=== PATIENT | male | born 1950 | race Caucasian/White ===

== ENCOUNTER 2023-08-02 08:54 | Inpatient (IN) | payer MEDICARE ==
[~2023-08-02] VITALS: Ht 170.2 cm; Wt 60.7 kg
[2023-08-02] MEDS ORDERED: SODIUM CHLORIDE 0.9% 2,100 ML IV ONE (09:45)
[2023-08-02] MEDS ORDERED: 0.9% SODIUM CHLORIDE 10 ML SYRINGE IVP PRN (09:45)
[2023-08-02] MEDS ORDERED: CefTRIAXone 1 GM/DEXTROSE 50 ML IV ONE (09:45)
[2023-08-02 10:21] LABS: BASOPHILS % (AUTO) 1.2 % (0.0-2.0); EOSINOPHILS % (AUTO) 4.3 % (1.0-6.0); HEMATOCRIT 33.5 % (41-53); HEMOGLOBIN 10.6 g/dL (13.5-17.5); LYMPHOCYTES # (AUTO) 1.2 K/uL (1.0-4.8); LYMPHOCYTES % (AUTO) 12.2 % (22.0-44.0); MEAN CORPUSCULAR HEMOGLOBIN 26.2 pg (26.0-34.0); MEAN CORPUSCULAR HGB CONC 31.7 G/dL (31.0-37.0); MEAN CORPUSCULAR VOLUME 83 fL (80-100); MONOCYTES % (AUTO) 9.7 % (2.0-9.0); NEUTROPHILS # (AUTO) 7.2 K/uL (1.8-7.7); NEUTROPHILS % (AUTO) 72.6 % (40.0-70.0); PLATELET COUNT (AUTO) 512 K/uL (150-450); RED BLOOD CELL COUNT(AUTO) 4.05 MIL/uL (4.50-5.90); RED CELL DISTRIBUTION WIDTH 18.3 % (11.5-14.5); WHITE BLOOD COUNT (AUTO) 9.9 K/uL (4.5-11.0)
[2023-08-02 10:34] LABS: PROTHROMBIN TIME 10.8 SEC (9.4-11.6)
[2023-08-02 10:36] LABS: ANION GAP 15 mmol/L (8-16); CALCIUM, TOTAL 8.9 mg/dL (8.8-10.5); CARBON DIOXIDE 19 mmol/L (22-29); CHLORIDE 104 mmol/L (98-107); CREATININE 2.21 mg/dL (0.60-1.30); GLOMERULAR FILTR. RATE CALC 29 mL/min (>60); GLUCOSE,RANDOM 95 mg/dL (70-110); POTASSIUM 4.4 mmol/L (3.5-5.1); SODIUM SERUM 138 mmol/L (136-145); UREA NITROGEN, BLOOD 40 mg/dL (7-18)
[2023-08-02 10:42] LABS: ALANINE AMINOTRANSFERASE 9 U/L (12-78); ALBUMIN 2.5 g/dL (3.4-5.0); ALKALINE PHOSPHATASE 99 U/L (46-116); ASPARTATE AMINOTRANSFERASE 14 U/L (15-37); BILIRUBIN,TOTAL 0.2 mg/dL (0.1-1.0); CREATINE KINASE, TOTAL ONLY 37 U/L (39-308); TOTAL PROTEIN, SERUM 8.7 g/dL (6.4-8.2)
[2023-08-02 10:44] LABS: B-TYPE NATRIURETIC PEPTIDE 104 pg/mL (0-100); LACTIC ACID 1.7 mmol/L (0.4-2.0); TROPONIN I-HIGH SENSITIVITY 58 ng/L (<76)
[2023-08-02] MEDS ORDERED: SODIUM CHLORIDE 0.9% 1,000 ML IV ONE (11:15)
[2023-08-02 12:53] LABS: APPEARANCE,URINE CLEAR (CLEAR); BILIRUBIN,URINE NEGATIVE (NEGATIVE); COLOR,URINE LIGHT YELLOW (YELLOW); GLUCOSE, URINE (UA) NEGATIVE (NEGATIVE); KETONES,URINE NEGATIVE (NEGATIVE); LEUKOCYTE ESTERASE ,URINE MODERATE (NEGATIVE); NITRATE,URINE NEGATIVE (NEGATIVE); OCCULT BLOOD,URINE TRACE (NEGATIVE); PROTEIN,URINE TRACE mg/dL (NEGATIVE); SPECIFIC GRAVITIY, URINE 1.012 (1.003-1.030); UROBILINOGEN,URINE <=1.0 mg/dL (<=1.0)
[2023-08-02 13:10] LABS: BACTERIA,URINE Few /HPF (None Seen); RBC,URINE 0-2 /HPF (0-2); SQUAMOUS EPITHELIAL CELL,UR Few /LPF (None Seen)
[2023-08-02] MEDS: ACETAMINOPHEN 325 MG TABLET PO PRN ×2 (14:02→23:19)
[2023-08-02] MEDS: HEPARIN SODIUM,PORCINE 5,000 UNITS/ML VIAL SQ SCH ×2 (15:17→23:59)
[2023-08-02] MEDS: DOCUSATE SODIUM 100 MG CAPSULE PO SCH (20:40)
[2023-08-02 23:00] VITALS: BP 127/78; PULSE 102; RESP 18; TEMP 98.2
[2023-08-03 03:15] VITALS: BP 130/77; PULSE 92; RESP 20; TEMP 98.1
[2023-08-03] MEDS: ACETAMINOPHEN 325 MG TABLET PO PRN (05:28)
[2023-08-03] MEDS: FAMOTIDINE 20 MG TABLET PO SCH (08:34)
[2023-08-03] MEDS: MULTIVITAMINS WITH MINERALS, THERAPEUTIC TABLET PO SCH (08:34)
[2023-08-03] MEDS: DOCUSATE SODIUM 100 MG CAPSULE PO SCH ×2 (08:34→20:10)
[2023-08-03] MEDS: ASPIRIN 81 MG CHEWABLE TABLET PO SCH (08:34)
[2023-08-03] MEDS: HEPARIN SODIUM,PORCINE 5,000 UNITS/ML VIAL SQ SCH ×3 (08:36→23:48)
[2023-08-03 08:51] VITALS: BP 106/67; PULSE 83; RESP 19; TEMP 98.2
[2023-08-03] MEDS ORDERED: SODIUM CHLORIDE 0.9% 1,000 ML IV ONE (09:30)
[2023-08-03] MEDS: CefTRIAXone 1 GM/DEXTROSE 50 ML IV SCH (16:59)
[2023-08-03 17:00] VITALS: BP 118/72; PULSE 88; RESP 19; TEMP 98.1
[2023-08-03 19:45] VITALS: BP 113/61; PULSE 84; RESP 19; TEMP 98.2
[2023-08-04 05:57] VITALS: BP 128/77; PULSE 77; RESP 19; TEMP 97.5
[2023-08-04 07:59] LABS: CALCIUM, TOTAL 8.4 mg/dL (8.8-10.5); CREATININE 1.86 mg/dL (0.60-1.30); POTASSIUM 4.5 mmol/L (3.5-5.1)
[2023-08-04 08:00] VITALS: BP 146/72; PULSE 81; RESP 18; TEMP 98.3
[2023-08-04] MEDS: HEPARIN SODIUM,PORCINE 5,000 UNITS/ML VIAL SQ SCH ×5 (08:00→23:44)
[2023-08-04] MEDS: DOCUSATE SODIUM 100 MG CAPSULE PO SCH ×4 (08:37→19:56)
[2023-08-04] MEDS: ASPIRIN 81 MG CHEWABLE TABLET PO SCH ×2 (08:37→09:31)
[2023-08-04] MEDS: MULTIVITAMINS WITH MINERALS, THERAPEUTIC TABLET PO SCH ×2 (08:37→09:31)
[2023-08-04] MEDS: FAMOTIDINE 20 MG TABLET PO SCH ×2 (08:37→09:31)
[2023-08-04 15:35] VITALS: BP 133/62; PULSE 72; RESP 18; TEMP 98.4
[2023-08-04] MEDS: CefTRIAXone 1 GM/DEXTROSE 50 ML IV SCH (16:50)
[2023-08-04] MEDS ORDERED: SODIUM CHLORIDE 0.9% 250 ML IV ONE (16:53)
[2023-08-04 20:00] VITALS: BP 129/71; PULSE 85; RESP 20; TEMP 98.1
[2023-08-05 05:45] VITALS: BP_SYST 119; BP_SYST 131; BP_DIAS 72; BP_DIAS 74; PULSE 76; PULSE 95; RESP 18; RESP 20; TEMP 97.8
[2023-08-05 07:03] LABS: CALCIUM, TOTAL 8.1 mg/dL (8.8-10.5); CREATININE 1.81 mg/dL (0.60-1.30); POTASSIUM 4.5 mmol/L (3.5-5.1)
[2023-08-05] MEDS: HEPARIN SODIUM,PORCINE 5,000 UNITS/ML VIAL SQ SCH ×3 (08:00→23:29)
[2023-08-05] MEDS: MULTIVITAMINS WITH MINERALS, THERAPEUTIC TABLET PO SCH (08:07)
[2023-08-05] MEDS: ASPIRIN 81 MG CHEWABLE TABLET PO SCH (08:07)
[2023-08-05] MEDS: FAMOTIDINE 20 MG TABLET PO SCH (08:08)
[2023-08-05] MEDS: DOCUSATE SODIUM 100 MG CAPSULE PO SCH ×2 (08:08→20:31)
[2023-08-05 08:11] VITALS: BP 140/81; PULSE 81; RESP 19; TEMP 98
[2023-08-05 12:42] LABS: BAND NEUTROPHILS % (MANUAL) 0 % (0-5)
[2023-08-05 12:45] LABS: HEMATOCRIT 26.6 % (41-53); HEMOGLOBIN 8.2 g/dL (13.5-17.5); MEAN CORPUSCULAR HEMOGLOBIN 25.5 pg (26.0-34.0); MEAN CORPUSCULAR HGB CONC 30.8 G/dL (31.0-37.0); MEAN CORPUSCULAR VOLUME 83 fL (80-100); PLATELET COUNT (AUTO) 416 K/uL (150-450); RED BLOOD CELL COUNT(AUTO) 3.21 MIL/uL (4.50-5.90); RED CELL DISTRIBUTION WIDTH 17.9 % (11.5-14.5); WHITE BLOOD COUNT (AUTO) 9.4 K/uL (4.5-11.0)
[2023-08-05 13:11] LABS: BASOPHILS % (MANUAL) 1 % (0-2); EOSINOPHILS % (MANUAL) 1 % (1-6); LYMPHOCYTES % (MANUAL) 13 % (22-44); MONOCYTES % (MANUAL) 12 % (2-9); SEGMENTED NEUTROPHILS % 73 % (40-70); TOTAL CELLS COUNTED 100
[2023-08-05] MEDS: CefTRIAXone 1 GM/DEXTROSE 50 ML IV SCH (16:39)
[2023-08-05 20:45] VITALS: BP 133/83; PULSE 93; RESP 19; TEMP 97.9
[2023-08-06 05:38] VITALS: BP 133/81; PULSE 79; RESP 18; TEMP 98.1
[2023-08-06 07:20] LABS: CALCIUM, TOTAL 8.1 mg/dL (8.8-10.5); CREATININE 1.88 mg/dL (0.60-1.30); POTASSIUM 4.5 mmol/L (3.5-5.1)
[2023-08-06 08:08] VITALS: BP 131/82; PULSE 98; RESP 18; TEMP 98.4
[2023-08-06] MEDS: HEPARIN SODIUM,PORCINE 5,000 UNITS/ML VIAL SQ SCH ×2 (08:41→16:19)
[2023-08-06] MEDS: FAMOTIDINE 20 MG TABLET PO SCH (08:41)
[2023-08-06] MEDS: DOCUSATE SODIUM 100 MG CAPSULE PO SCH ×3 (08:41→21:28)
[2023-08-06] MEDS: ASPIRIN 81 MG CHEWABLE TABLET PO SCH (08:41)
[2023-08-06] MEDS: MULTIVITAMINS WITH MINERALS, THERAPEUTIC TABLET PO SCH (08:41)
[2023-08-06] MEDS: CefTRIAXone 1 GM/DEXTROSE 50 ML IV SCH (16:20)
[2023-08-06 16:23] VITALS: BP 138/84; PULSE 83; RESP 18; TEMP 98.3
[2023-08-06 19:45] VITALS: BP 126/80; PULSE 97; RESP 18; TEMP 98.8
[2023-08-07] MEDS: HEPARIN SODIUM,PORCINE 5,000 UNITS/ML VIAL SQ SCH ×3 (00:25→16:39)
[2023-08-07 04:37] VITALS: BP 119/63; PULSE 70; RESP 18; TEMP 98
[2023-08-07] MEDS: ASPIRIN 81 MG CHEWABLE TABLET PO SCH (09:01)
[2023-08-07] MEDS: FAMOTIDINE 20 MG TABLET PO SCH (09:01)
[2023-08-07] MEDS: MULTIVITAMINS WITH MINERALS, THERAPEUTIC TABLET PO SCH (09:01)
[2023-08-07] MEDS: DOCUSATE SODIUM 100 MG CAPSULE PO SCH ×2 (09:01→20:40)
[2023-08-07 11:19] VITALS: BP 113/72; PULSE 80; RESP 18; TEMP 98.1
[2023-08-07] MEDS ORDERED: SODIUM CHLORIDE 0.9% 500 ML IV ONE (11:45)
[2023-08-07] MEDS: CefTRIAXone 1 GM/DEXTROSE 50 ML IV SCH (16:39)
[2023-08-07 19:50] VITALS: BP 126/86; PULSE 93; RESP 18; TEMP 98.3
[2023-08-08] MEDS: HEPARIN SODIUM,PORCINE 5,000 UNITS/ML VIAL SQ SCH ×3 (00:53→16:00)
[2023-08-08] MEDS: MULTIVITAMINS WITH MINERALS, THERAPEUTIC TABLET PO SCH (08:32)
[2023-08-08] MEDS: DOCUSATE SODIUM 100 MG CAPSULE PO SCH (08:33)
[2023-08-08] MEDS: FAMOTIDINE 20 MG TABLET PO SCH (08:33)
[2023-08-08] MEDS: ASPIRIN 81 MG CHEWABLE TABLET PO SCH (08:33)
[2023-08-08 10:18] VITALS: BP 125/74; PULSE 74; RESP 18; TEMP 97.4
[2023-08-08] MEDS ORDERED: ASPI-1450 PO (14:01)
[2023-08-08] MEDS ORDERED: FAMO20 PO (14:02)
[2023-08-08] MEDS ORDERED: MULT-248 PO (14:04)
[2023-08-08] MEDS ORDERED: ACET-2247 PO (14:05)
[2023-08-08] MEDS: CefTRIAXone 1 GM/DEXTROSE 50 ML IV SCH (16:00)
== END 2023-08-08 20:15 | DRG 682 ==
LOC: EMS 08:55 → AHU 19:06 → 6S 21:48
PROVIDERS: ADMIT Internal Medicine; ATTEND Internal Medicine
PROC: 0HBRXZZ Excision of Toe Nail, External Approach (ICD-10-PCS; principal; 2023-08-08)
PROC: 0HBRXZZ Excision of Toe Nail, External Approach (ICD-10-PCS; 2023-08-08)
PROC: 0HBRXZZ Excision of Toe Nail, External Approach (ICD-10-PCS; 2023-08-08)
PROC: 0HBRXZZ Excision of Toe Nail, External Approach (ICD-10-PCS; 2023-08-08)
PROC: 0HBRXZZ Excision of Toe Nail, External Approach (ICD-10-PCS; 2023-08-08)
PROC: 0HBRXZZ Excision of Toe Nail, External Approach (ICD-10-PCS; 2023-08-08)
PROC: 0HBRXZZ Excision of Toe Nail, External Approach (ICD-10-PCS; 2023-08-08)
PROC: 0HBRXZZ Excision of Toe Nail, External Approach (ICD-10-PCS; 2023-08-08)
PROC: 0HBRXZZ Excision of Toe Nail, External Approach (ICD-10-PCS; 2023-08-08)
PROC: 0HBRXZZ Excision of Toe Nail, External Approach (ICD-10-PCS; 2023-08-08)
DX: N17.0 Acute kidney failure with tubular necrosis (principal); E43 Unspecified severe protein-calorie malnutrition; E87.20 Acidosis, unspecified; L03.116 Cellulitis of left lower limb; L03.115 Cellulitis of right lower limb; D75.839 Thrombocytosis, unspecified; D64.9 Anemia, unspecified; E86.0 Dehydration; L60.0 Ingrowing nail; M20.40 Other hammer toe(s) (acquired), unspecified foot; M21.619 Bunion of unspecified foot; Z85.01 Personal history of malignant neoplasm of esophagus; Z68.21 Body mass index [BMI] 21.0-21.9, adult; Z91.412 Personal history of adult neglect
CPT/HCPCS: 71045; 76770; 80048; 80053; 81001; 82550; 83605; 83880; 84145; 84484; 85007; 85025; 85027; 85610; 87040; 87086; 87186; 93005; 97110; 97116; 97163; 97166; 97535; 99285; J0696; J1644; J7030; J7040; J7050; 36415-L1; 36415-TC